=== PATIENT | male | born 1965 | race Caucasian/White ===

== ENCOUNTER → 2022-12-31 14:00 | Outpatient (BNVA) | payer MEDICAID, SELFPAY | PROVIDERS: Visit Provider Nurse Practitioner Family | DX: R05.8 Other specified cough (principal) | CPT/HCPCS: 71046 ==

== ENCOUNTER 2024-05-21 12:08 | Emergency (ER) | payer MEDICAID, SELFPAY ==
[2024-05-21 12:20] VITALS: BP 140/95; PULSE 96; RESP 18; TEMP 36.9; O2SAT 95; BMI 39.1
[2024-05-21 13:20] LABS: Basophils # 0.1 10^3/uL (0.0-0.1); Basophils % 0.6 %; Eosinophils # 0.1 10^3/uL (0.0-0.8); Eosinophils % 0.5 %; Hematocrit 51.6 % (37-53); Lymphocytes # 1.4 10^3/uL (0.8-4.8); Lymphocytes % 12.3 %; Mean Corpuscular HGB Conc 34.1 g/dL (30-55); Mean Corpuscular Volume 88.1 fl (82-101); Mean Platelet Volume 11.7 fL (7.4-10.4); Monocytes # 0.6 10^3/uL (0.2-0.9); Monocytes % 5.5 %; Neutrophils # 9.34 10^3/uL (1.8-7.7); Neutrophils % 80.7 %; Nucleated Red Blood Cells % 0 %; Platelet Count 162 10^3/cmm (157-399); Red Blood Count 5.86 10^6/uL (3.85-5.65); Red Cell Distribution Width 13.7 % (12.1-15.1); White Blood Count 11.59 10^3/uL (3.29-11.43)
[2024-05-21 13:36] LABS: Alanine Aminotransferase 32 U/L (0-41); Albumin Level 4.2 g/dL (3.5-5.2); Alkaline Phosphatase 121 U/L (40-130); Aspartate Amino Transferase 34 U/L (0-40); Blood Urea Nitrogen 14 mg/dL (6-20); Calcium 9.9 mg/dL (8.5-10.5); Carbon Dioxide 21 mmol/L (22-29); Chloride 97 mmol/L (98-107); Creatinine Clr Calc Pharmacy 123.9863; Globulin 3.9 g/dL (1.3-4.6); Glucose 169 mg/dL (65-115); Lipase 38 U/L (13-60); Osmolality Calculated 284 mOsm/kg (285-295); Sodium 135 mmol/L (136-145); Total Bilirubin 0.6 mg/dL (0.15-1.2); Total Protein 8.1 g/dL (6.6-8.7)
[2024-05-21 13:37] LABS: Slide Review Slide Review Perform
[2024-05-21 15:15] VITALS: BP 162/95; PULSE 116; O2SAT 95
--- NOTE | 2024-05-21 15:16 | CTR_ITS ---
PROCEDURE INFORMATION: Exam: CT Abdomen And Pelvis With Contrast Exam date and time: 05/21/2024 3:26 PM Age: 58 years old Clinical indication: Abdominal pain; Additional info: Abd pain TECHNIQUE: Imaging protocol: Computed tomography of the abdomen and pelvis with contrast. Radiation optimization: All CT scans at this facility use at least one of these dose optimization techniques: automated exposure control; mA and/or kV adjustment per patient size (includes targeted exams where dose is matched to clinical indication); or iterative reconstruction. Contrast material: OMNI 350; Contrast volume: 100 ml; Contrast route: INTRAVENOUS (IV); COMPARISON: CR XR chest 2V* [id number] 12/31/2022 2:03 PM RADIATION DOSE METRICS: Total DLP (mGy-cm): 1290 FINDINGS: Liver: Normal. No mass. Gallbladder and biliary ducts: Gallbladder is normally distended, there is minimal pericholecystic fluid, with hyperenhancement of its chen there are least 2 large gallstones identified. Pancreas: Normal. No ductal dilation. Spleen: Normal. No splenomegaly. Adrenal glands: Normal. No mass. Kidneys and ureters: Normal. No hydronephrosis. Stomach and bowel: Unremarkable. No obstruction. No mucosal thickening. Appendix: Normal appendix. Intraperitoneal space: Unremarkable. No free air. No significant fluid collection. Vasculature: Unremarkable. No abdominal aortic aneurysm. Lymph nodes: Unremarkable. No enlarged lymph nodes. Urinary bladder: Unremarkable as visualized. Reproductive: Unremarkable as visualized. Bones/joints: Unremarkable. No acute fracture. Soft tissues: Mild bilateral gynecomastia. CT/CT abdomen pelvis w con* [id number] IMPRESSION: 1. Cholelithiasis with mild wall thickening and possible pericholecystic fluid. Further evaluation with right upper quadrant sonogram may be obtained to exclude acute cholecystitis. 2. Mild bilateral gynecomastia
--- NOTE | 2024-05-21 15:17 | ED_ITS ---
HPI - Abdominal Pain 2 General: Chief Complaint: Abdominal Pain Stated Complaint: abd pain, nausea Time Seen by Provider: 05/21/24 14:16 Source: patient Mode of arrival: ambulatory Limitations: no limitations History of Present Illness: 58-year-old male states that over the 2 days has been having diffuse abdominal pain he is also been having vomiting diarrhea states he had 3 episodes of vomiting today states pain is diffuse in nature throbbing rated a 6 out of 10 he denies any fever states he has a history IBS denies any worsening improving factors. Associated Symptoms: Reports diarrhea, nausea and vomiting; Denies chills, dysuria and fever(s) Review of Systems 2 Const: Denies: fever(s), chills, body aches or change in appetite ENMT: Denies: throat pain or dental pain Card: Denies: chest pain Resp: Denies: dyspnea GI: Reports: abdominal pain, nausea, vomiting and diarrhea : Denies: dysuria Musc: Denies: neck pain or back pain Skin/Breast: Denies: rash Neuro: Denies: headache(s) Physical Exam 2 Const: COMMON NORMALS: no acute distress, patient oriented x3 and healthy appearing HENMT: COMMON NORMALS: normocephalic and atraumatic HEAD & SCALP: n ormocephalic and atraumatic Eye: COMMON NORMALS: conjunctivae normal CONJUNCTIVA: Yes conjunctivae normal Neck/C-Spine: COMMON NORMALS: full ROM and supple Chest: COMMONS NORMALS: normal inspection of the chest Resp: COMMON NORMALS: normal respiratory effort, No retractions, No use of accessory muscles and clear to auscultation bilaterally AUSCULTATION: clear to auscultation bilaterally Cardio: COMMON NORMALS: regular rhythm and No murmurs present (Cardio) R ATE: tachycardic RHYTHM: regular rhythm GI: COMMON NORMALS: Normal to inspection, nondistended, normoactive bowel sounds present, Soft to palpation, non-tender and no masses PALPATION: Yes Soft to palpation Extremity: COMMON NORMALS: normal to inspection and full ROM Neuro: COMMON NORMALS: patient oriented x3, moves all extremities and no focal motor deficits Psych: COMMON NORMALS: mental status grossly normal, Normal thought process present and cooperative THOUGHT PROCESS: Normal thought process present Skin: COMMON NORMALS: no rashes or lesions noted and no wounds GENERAL SKIN EXAM: no rashes or lesions noted Course 2 Vital Signs: Vital signs: Vital Signs Temperature 98.4 F 05/21/24 12:20 Pulse Rate 116 H 05/21/24 15:15 Respiratory Rate 18 05/21/24 12:20 Blood Pressure 132/117 05/21/24 16:50 Pulse Oximetry 95 05/21/24 15:15 Oxygen Delivery Me thod Room Air 05/21/24 15:15 MDM - Abdominal Pain Medical Decision Making Patient presents with abdominal pain he does have some gallstones his abdominal exam at discharge benign he has no right upper quadrant tenderness no signs of acute cholecystitis we will start him on pain meds and antibiotics we will get him follow-up with surgery for his gallstones he is return if worsening he understands agrees to plan Medical Records I reviewed the patient's medical records. Lab Data I reviewed the patient's lab results. 05/21/24 12:56 05/21/24 12:56 Labs/Radiology: Radiology Impressions Abdomen/Pelvis CT 05/21/24 15:16 IMPRESSION: 1. Cholelithiasis with mild wall thickening and possible pericholecystic fluid. Further evaluation with right upper quadrant sonogram may be obtained to exclude acute cholecystitis. 2. Mild bilateral gynecomastia Laboratory Results WBC 11.59 10^3/uL (3.29-11.43) H 05/21/24 12:56 RBC 5.86 10^6/uL (3.85-5.65) H 05/21/24 12:56 Hgb 17.60 g/dL (11.27-16.99) H 05/21/24 12:56 Hct 51.6 % (37-53) 05/21/24 12:56 MCV 88.1 fl (82-101) 05/21/24 12:56 MCH 30.0 pg (27-33) 05/21/24 12:56 MCHC 34.1 g/dL (30-55) 05/21/24 12:56 RDW 13.7 % (12.1-15.1) 05/21/24 12:56 Plt Count 162 10^3/cmm (157-399) 05/21/24 12:56 MPV 11.7 fL (7.4-10.4) H 05/21/24 12:56 Neut % (Auto) 80.7 % 05/21/24 12:56 Lymph % (Auto) 12.3 % 05/21/24 12:56 [place] % (Auto) 5.5 % 05/21/24 12:56 Eos % (Auto) 0.5 % 05/21/24 12:56 Baso % (Auto) 0.6 % 05/21/24 12:56 Neut # (Auto) 9.34 10^3/uL (1.8-7.7) H 05/21/24 12:56 Lymph # (Auto) 1.4 10^3/uL (0.8-4.8) 05/21/24 12:56 [place] # (Auto) 0.6 10^3/uL (0.2-0.9) 05/21/24 12:56 Eos # (Auto) 0.1 10^3/uL (0.0-0.8) 05/21/24 12:56 Baso # (Auto) 0.1 10^3/uL (0.0-0.1) 05/21/24 12:56 Nucleated RBC % (auto) 0 % 05/21/24 12:56 Nucleated RBCs # 0.0 /100WBC 05/21/24 12:56 Sodium 135 mmol/L (136-145) L 05/21/24 12:56 Potassium 4.0 mmol/L (3.5-5.1) 05/21/24 12:56 Chloride 97 mmol/L (98-107) L 05/21/24 12:56 Carbon Dioxide 21 mmol/L (22-29) L 05/21/24 12:56 Anion Gap 21.0 (5-19) H 05/21/24 12:56 BUN 14 mg/dL (6-20) 05/21/24 12:56 Creatinine 0.8 mg/dL (0.7-1.2) 05/21/24 12:56 GFR Calculation 100.0 mL/min (90-130) 05/21/24 12:56 Glucose 169 mg/dL (65-115) H 05/21/24 12:56 Calculated Osmolality 284 mOsm/kg (285-295) L 05/21/24 12:56 Calcium 9.9 mg/dL (8.5-10.5) 05/21/24 12:56 Total Bilirubin 0.6 mg/dL (0.15-1.2) 05/21/24 12:56 AST 34 U/L (0-40) 05/21/24 12:56 ALT 32 U/L (0-41) 05/21/24 12:56 Alkaline Phosphatase 121 U/L (40-130) 05/21/24 12:56 Total Protein 8.1 g/dL (6.6-8.7) 05/21/24 12:56 Albumin 4.2 g/dL (3.5-5.2) 05/21/24 12:56 Globulin 3.9 g/dL (1.3-4.6) 05/21/24 12:56 Lipase 38 U/L (13-60) 05/21/24 12:56 All radiology interpretation(s) finalized by discharge Discharge Plan Discharge Patient Disposition: Home Clinical Impression: Abdominal pain, Cholelithiasis Condition: Stable Prescriptions: New hydrocodone-acetaminophen 5-325 mg tablet 1 tab PO Q6H PRN (Reason: pain) Qty: 14 0RF ondansetron 4 mg tablet,disintegrating 4 mg PO Q6H PRN (Reason: nausea and vomiting) Qty: 14 0RF Augmentin 500-125 mg tablet 1 tab PO BID Qty: 14 0RF Discharge Orders: Discharge ED (Routine); Ordered 05/21/24 Ordered By: Karlie Kaiser Referrals: Zoran Naranjo DO [Physician] - 1-3 days Anthony Bernal MD [Primary Care Provider] - Discharge Diet: Advance as tolerated Discharge Activity: Resume usual activity Patient Instructions: Abdominal Pain - Adult, Gallstones (ED), Abdominal Pain (ED) Coding 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
[2024-05-21] MEDS: iohexol 350 mg/mL 500 mL Btl (per mL) IV (15:28)
[2024-05-21] MEDS: diphenhydrAMINE 50 mg/mL SDV 1mL IVP (15:37)
[2024-05-21] MEDS: metoclopramide 5 mg/mL SDV 2 mL 10 MG IVP (15:37)
[2024-05-21] MEDS: sodium chloride 0.9% 1,000 ML 999 ML IV (15:37)
--- NOTE | 2024-05-21 16:14 | USR_ITS ---
PROCEDURE INFORMATION: Exam: US Abdomen, Limited; Right Upper Quadrant Exam date and time: 05/21/2024 4:25 PM Age: 58 years old Clinical indication: Abdominal pain; Additional info: Ruq pain TECHNIQUE: Imaging protocol: Real time ultrasound of the abdomen with image documentation. Limited exam focused on the right upper quadrant. COMPARISON: CT abdomen pelvis w con* [id number] 05/21/2024 3:26 PM FINDINGS: Liver: Diffuse hepatic steatosis. Gallbladder: Mild diffuse apparent bladder wall thickening with pericholecystic fluid (series 1, images 620, 650, 660) with a small tiny pocket of free fluid adjacent to the liver. Cholelithiasis. Biliary ducts: Normal. No stones. No dilation. Pancreas: Visualized pancreas is unremarkable. Right kidney: Right renal cortical thickening. US/US gall bladder [id number] IMPRESSION: 1. Cholelithiasis with mild pericholecystic fluid and borderline wall thickening. 2. Mild diffuse hepatic steatosis.
[2024-05-21 16:50] VITALS: BP 132/117
[2024-05-21 16:59] VITALS: BP 132/117; PULSE 116; RESP 18; TEMP 36.9; O2SAT 95
--- NOTE | 2024-05-22 08:56 | DCPLANNER ---
messaged gen surg for er f/u
== END 2024-05-21 17:00 | disposition home or self-care (01) ==
PROVIDERS: Emergency Provider Emergency Medicine; PCP Family Medicine
DX: K80.20 Calculus of gallbladder without cholecystitis without obstruction (principal)
CPT/HCPCS: 36415; 74177; 76705; 80053; 83690; 85025; 96374; 96375; 99285; J1200; J2765; J7030; Q9967

== ENCOUNTER 2025-04-04 09:59 | Emergency (ER) | payer MEDICAID, SELFPAY ==
[2025-04-04 10:04] VITALS: BP 109/66; PULSE 107; RESP 17; TEMP 36.6; O2SAT 96; BMI 36.0
[2025-04-04 10:08] VITALS: BP 111/87; PULSE 73; RESP 18; O2SAT 96
--- NOTE | 2025-04-04 10:58 | CT_ITS ---
WS: [id number] CT scan of the head, 04/04/2025 Clinical Data: headache Comparison: None. DLP: 1188.[address] scans at [facility] use at least one of these dose optimization techniques: automated exposure control; mA and/or kV adjustment per patient size (includes targeted exams where dose is matched to clinical indication); or iterative reconstruction. Findings: The ventricular system is slightly dilated without shift. The sulci are mildly enlarged. No recent infarct or hemorrhage is seen. There are no abnormal intracerebral masses. The cerebellum and brainstem are not remarkable. Bony windows of the skull and skull base show no fractures or erosions. The mastoid air cells, internal auditory canals, sella turcica, intraorbital contents, and paranasal sinuses are unremarkable. CT/CT head wo con* [id number] Impression: Mild cerebral atrophy.
[2025-04-04 11:08] VITALS: BP 105/63; PULSE 90; RESP 16; O2SAT 93
[2025-04-04 11:13] LABS: Basophils # 0.1 10^3/uL (0.0-0.1); Basophils % 0.9 %; Eosinophils % 0.2 %; Lymphocytes # 3.9 10^3/uL (0.8-4.8); Lymphocytes % 58.9 %; Mean Corpuscular HGB Conc 32.8 g/dL (30-55); Mean Corpuscular Hemoglobin 28.1 pg (27-33); Mean Corpuscular Volume 85.7 fl (82-101); Mean Platelet Volume 11.7 fL (7.4-10.4); Monocytes # 0.6 10^3/uL (0.2-0.9); Monocytes % 9.5 %; Neutrophils # 2.01 10^3/uL (1.8-7.7); Neutrophils % 30.2 %; Nucleated Red Blood Cells % 0 %; Platelet Count 213 10^3/cmm (157-399); Red Blood Count 5.02 10^6/uL (3.85-5.65); Red Cell Distribution Width 15.4 % (12.1-15.1); White Blood Count 6.64 10^3/uL (3.29-11.43)
[2025-04-04 11:30] VITALS: BP 114/65; PULSE 90; RESP 16; O2SAT 91
[2025-04-04 11:39] LABS: Slide Review Slide Review Perform
[2025-04-04 12:18] LABS: Alanine Aminotransferase 24 U/L (0-41); Albumin Level 3.2 g/dL (3.5-5.2); Alkaline Phosphatase 127 U/L (40-130); Anion Gap 14.5 (5-19); Aspartate Amino Transferase 37 U/L (0-40); Blood Urea Nitrogen 7 mg/dL (6-20); Calcium 9.1 mg/dL (8.5-10.5); Carbon Dioxide 30 mmol/L (22-29); Chloride 94 mmol/L (98-107); Creatinine Clr Calc Pharmacy 134.0358; Globulin 3.8 g/dL (1.3-4.6); Glomerular Filtration Rate 116.2 mL/min (90-130); Glucose 238 mg/dL (65-115); Osmolality Calculated 288 mOsm/kg (285-295); Sodium 136 mmol/L (136-145); Total Bilirubin 0.6 mg/dL (0.15-1.2)
[2025-04-04 12:19] LABS: Potassium 2.5 mmol/L (3.5-5.1)
[2025-04-04 12:30] VITALS: BP 129/71; PULSE 86; RESP 17; O2SAT 91
--- NOTE | 2025-04-04 12:44 | W.ED.HA ---
HPI - Headache General: Chief Complaint: Headache Stated Complaint: off balance, headache, falls Time Seen by Provider: 04/04/25 10:48 History of Present Illness: This patient is a 59-year-old white male who presents to the emergency department complaining of a headache as well as some balance issues. States he has been having headache in the right temporal area that radiates to the occipital area. These headaches have been going on for about 1 week now. He has a history of falling but he says he has been falling more frequently recently. He states he feels like his right foot is not working right. States he has had an unsteady gait for about 2 years but is just getting worse. He does have a history of neuropathy, congestive heart failure, type 2 diabetes and irritable bowel syndrome. Related Data Home Medications ?Medication ?Instructions ?Recorded ?Confirmed amitriptyline 25 mg tablet 25 mg PO DAILY 07/24/24 07/26/24 atorvastatin 20 mg tablet 20 mg PO DAILY 07/24/24 07/26/24 dapagliflozin propanediol 10 mg 10 mg PO DAILY 07/24/24 07/26/24 tablet (Farxiga) furosemide 40 mg tablet (Lasix) 40 mg PO DAILY 07/24/24 07/26/24 gabapentin 400 mg capsule 400 mg PO TID 07/24/24 07/26/24 losartan 25 mg tablet 25 mg PO DAILY 07/24/24 07/26/24 metoprolol tartrate 50 mg tablet 50 mg PO DAILY 07/24/24 07/26/24 (Lopressor) spironolactone 25 mg tablet 25 mg PO DAILY 07/24/24 07/26/24 Previous Rx's ?Medication ?Instructions ?Recorded ondansetron 4 mg disintegrating 4 mg PO Q6H PRN nausea and 05/21/24 tablet vomiting #14 tabs potassium chloride 20 mEq 20 meq PO TID #21 tabs 04/04/25 tablet,extended release(part/cryst) Allergies Allergy/AdvReac Type Severity Reaction Status Date / Time No Known Allergies Allergy Verified 07/26/24 13:32 Review of Systems General: Reports: 10 or more systems reviewed and unremarkable except in HPI and below Neuro: Reports: headache(s) and difficulty walking PFSH ED PFSH: Family History Mother Aortic aneurysm Father Pancreatic cancer Social History Smoking and tobacco/nicotine status: current every day tobacco/nicotine user Alcohol intake: current Alcohol intake frequency: holidays/special occasions only Physical Exam Const: COMMON NORMALS: no acute distress, patient oriented x3 and no limitations GENERAL APPEARANCE: cooperative and comfortable HENMT: COMMON NORMALS: normocephalic, atraumatic, Normal nasal mucous membranes and turbinates present, moist oral mucous membranes and oropharynx normal HEAD & SCALP: normal to inspection, normocephalic and atraumatic FACE & SINUS: normal facial exam NOSE: Normal nasal mucous membranes and turbinates present Eye: COMMON NORMALS: Equal, round and reactive pupils present, EOMs intact bilaterally and conjunctivae normal GENERAL EYE: appearance normal, both eyes and all related structures CONJUNCTIVA: Yes conjunctivae normal PUPIL: Yes Equal, round and reactive pupils present Neck/C-Spine: COMMON NORMALS: supple and no JVD Chest: COMMONS NORMALS: normal inspection of the chest Resp: COMMON NORMALS: normal respiratory effort and clear to auscultation bilaterally AUSCULTATION: clear to auscultation bilaterally Cardio: COMMON NORMALS: no JVD, regular rate, regular rhythm, No gallops present (Cardio), No murmurs present (Cardio) and No rub (Cardio) RATE: regular rate RHYTHM: regular rhythm GI: COMMON NORMALS: Normal to inspection, nondistended, normoactive bowel sounds present, Soft to palpation and non-tender AUSCULTATION: Yes normoactive bowel sounds PALPATION: Yes Soft to palpation : COMMON NORMALS: Yes no CVA tenderness BLADDER/KIDNEY EXAM: Yes no CVA tenderness Back/Pelvis: COMMON NORMALS: no CVA tenderness and thoracic and lumbar spine normal to inspection Extremity: COMMON NORMALS: normal to inspection Neuro: COMMON NORMALS: patient oriented x3 and CN's II-XII intact bilaterally OTHER: Examining the patient's gait appears he does have some weakness in both lower extremities but he is able to ambulate cautiously. Psych: COMMON NORMALS: mental status grossly normal, Normal thought process present and cooperative THOUGHT PROCESS: Normal thought process present Skin: COMMON NORMALS: no rashes or lesions noted, turgor normal and no jaundice GENERAL SKIN EXAM: no rashes or lesions noted and turgor normal Course Vital Signs: Vital signs: Vital Signs Temperature 97.9 F 04/04/25 10:04 Pulse Rate 86 04/04/25 12:30 Respiratory Rate 17 04/04/25 12:30 Blood Pressure 129/71 04/04/25 12:30 Pulse Oximetry 91 04/04/25 12:30 Oxygen Delivery Me thod Room Air 04/04/25 12:30 MDM - Headache Medical Decision Making Head CT was read by the radiologist as mild cerebral atrophy. CBC was normal. CMP revealed a potassium of 2.5. Blood sugar was 238. Patient does not currently have a headache. I think he needs more of a workup than what I can do in the emergency department. Recommended he follow-up with his primary care provider and either have them refer him to neurology for further workup or possibly order MRI of the brain and spinal cord. In terms of the hypokalemia I did place him on 20 mill equivalents of potassium twice per day for 1 week and recommended he follow-up with his primary care physician for recheck in 1 week for recheck. He was discharged in stable condition. Lab Data 04/04/25 10:46 04/04/25 11:[address] 04/04/25 10:58 Impression: Mild cerebral atrophy. Laboratory Results WBC 6.64 10^3/uL (3.29-11.43) 04/04/25 10:46 RBC 5.02 10^6/uL (3.85-5.65) 04/04/25 10:46 Hgb 14.10 g/dL (11.27-16.99) 04/04/25 10:46 Hct 43.0 % (37-53) 04/04/25 10:46 MCV 85.7 fl (82-101) 04/04/25 10:46 MCH 28.1 pg (27-33) 04/04/25 10:46 MCHC 32.8 g/dL (30-55) 04/04/25 10:46 RDW 15.4 % (12.1-15.1) H 04/04/25 10:46 Plt Count 213 10^3/cmm (157-399) 04/04/25 10:46 MPV 11.7 fL (7.4-10.4) H 04/04/25 10:46 Neut % (Auto) 30.2 % 04/04/25 10:46 Lymph % (Auto) 58.9 % 04/04/25 10:46 [place] % (Auto) 9.5 % 04/04/25 10:46 Eos % (Auto) 0.2 % 04/04/25 10:46 Baso % (Auto) 0.9 % 04/04/25 10:46 Neut # (Auto) 2.01 10^3/uL (1.8-7.7) 04/04/25 10:46 Lymph # (Auto) 3.9 10^3/uL (0.8-4.8) 04/04/25 10:46 [place] # (Auto) 0.6 10^3/uL (0.2-0.9) 04/04/25 10:46 Eos # (Auto) 0.0 10^3/uL (0.0-0.8) 04/04/25 10:46 Baso # (Auto) 0.1 10^3/uL (0.0-0.1) 04/04/25 10:46 Nucleated RBC % (auto) 0 % 04/04/25 10:46 Nucleated RBCs # 0.0 /100WBC 04/04/25 10:46 Sodium 136 mmol/L (136-145) 04/04/25 11:42 Potassium 2.5 mmol/L (3.5-5.1) L* 04/04/25 11:42 Chloride 94 mmol/L (98-107) L 04/04/25 11:42 Carbon Dioxide 30 mmol/L (22-29) H 04/04/25 11:42 Anion Gap 14.5 (5-19) 04/04/25 11:42 BUN 7 mg/dL (6-20) 04/04/25 11:42 Creatinine 0.7 mg/dL (0.7-1.2) 04/04/25 11:42 GFR Calculation 116.2 mL/min (90-130) 04/04/25 11:42 Glucose 238 mg/dL (65-115) H 04/04/25 11:42 Calculated Osmolality 288 mOsm/kg (285-295) 04/04/25 11:42 Calcium 9.1 mg/dL (8.5-10.5) 04/04/25 11:42 Total Bilirubin 0.6 mg/dL (0.15-1.2) 04/04/25 11:42 AST 37 U/L (0-40) 04/04/25 11:42 ALT 24 U/L (0-41) 04/04/25 11:42 Alkaline Phosphatase 127 U/L (40-130) 04/04/25 11:42 Total Protein 7.0 g/dL (6.6-8.7) 04/04/25 11:42 Albumin 3.2 g/dL (3.5-5.2) L 04/04/25 11:42 Globulin 3.8 g/dL (1.3-4.6) 04/04/25 11:42 All radiology interpretation(s) finalized by discharge Discharge Plan Discharge Patient Disposition: Home Clinical Impression: Balance disorder Headache Qualifiers: Headache type: unspecified Headache chronicity pattern: episodic headache Intractability: not intractable Qualified Code(s): R51.9 - Headache, unspecified Condition: Stable Prescriptions: New potassium chloride 20 mEq tablet,ER particles/crystals 20 meq PO TID Qty: 21 0RF No Action gabapentin 400 mg capsule 400 mg PO TID losartan 25 mg tablet 25 mg PO DAILY furosemide [Lasix] 40 mg tablet 40 mg PO DAILY amitriptyline 25 mg tablet 25 mg PO DAILY atorvastatin 20 mg tablet 20 mg PO DAILY spironolactone 25 mg tablet 25 mg PO DAILY metoprolol tartrate [Lopressor] 50 mg tablet 50 mg PO DAILY dapagliflozin propanediol [Farxiga] 10 mg tablet 10 mg PO DAILY ondansetron 4 mg tablet,disintegrating 4 mg PO Q6H PRN (Reason: nausea and vomiting) Qty: 14 0RF Discharge Orders: Discharge ED (Routine); Ordered 04/04/25 Ordered By: Agapito Brooks Referrals: Anthony Bernal MD [Primary Care Provider, Family Practice] Patient Instructions: Hypokalemia, Fall Prevention Activity Restrictions/Additional Instructions: Follow-up with your primary care provider soon as possible for further evaluation. You may need an MRI of your brain and spinal cord and neurology referral. 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
--- NOTE | 2025-04-04 12:44 | PC.NURSE ---
ED PROVIDER AWARE OF POTASSIUM 2.5
[2025-04-04 12:57] VITALS: BP 129/71; PULSE 91; RESP 16; O2SAT 98
--- NOTE | 2025-04-04 14:19 | PC.NURSE ---
Concerns with resulted labs. supply chain director reviewed and call to patient to return. Pt verbalized understanding.
== END 2025-04-04 12:58 | disposition home or self-care (01) ==
PROVIDERS: Emergency Provider Emergency Medicine; PCP Family Medicine
DX: R26.89 Other abnormalities of gait and mobility (principal); Z72.0 Tobacco use; R51.9 Headache, unspecified
CPT/HCPCS: 36415; 70450; 80053; 85025; 99284

== ENCOUNTER 2025-04-04 15:16 | Observation (INO) | payer MEDICAID, SELFPAY ==
[2025-04-04] VITALS (25 sets, daily range): BP systolic 112–153; BP diastolic 61–113; PULSE 65–105; RESP 16–27; TEMP 36.8; O2SAT 91–96; BMI 36.0
--- NOTE | 2025-04-04 15:20 | ECG_ITS ---
[employer] Test Date: 2025-04-04 Pat Name: [facility] [place] Department: Room: ED Gender: Male Recruiting Manager: : [id number] Requested By: Agapito Brooks Order Number: [id number] Darren MD: TONI MICHAELS Measurements Intervals [place] Rate: 100 P: 111 [place]: 198 QRS: -50 QRSD: 150 T: 0 QT: 395 QTc: 510 Interpretive Statements SINUS TACHYCARDIA LEFT AXIS DEVIATION [QRS AXIS < -30] LEFT BUNDLE BRANCH BLOCK [120+ ms QRS DURATION, 80+ ms Q/S IN V1/V2, 85+ ms R IN I/aVL/V5/V6] No previous ECG available for comparison Electronically Signed On 04-10-2025 22:58:19 CDT by TONI MICHAELS [id number]
[2025-04-04 16:32] LABS: Magnesium 1.8 mg/dL (1.7-2.3)
[2025-04-04] MEDS: potassium chloride oral liq 20 mEq/15 mL UDC 40 MEQ PO (16:51)
--- NOTE | 2025-04-04 17:30 | W.ED.RECABL ---
HPI - Recheck/Abnormal Lab/Rx General: Chief Complaint: Recheck/Abnormal Lab/Rx Stated Complaint: k+ 2.5 Time Seen by Provider: 04/04/25 15:23 History of Present Illness: This patient is a 59-year-old white male who I saw earlier today. Evidently he was called back to the emergency department due to the hypokalemia. Related Data Home Medications ?Medication ?Instructions ?Recorded ?Confirmed amitriptyline 25 mg tablet 25 mg PO BEDTIME PRN Sleep 07/24/24 04/04/25 atorvastatin 20 mg tablet 20 mg PO QAM 07/24/24 04/04/25 dapagliflozin propanediol 10 mg 10 mg PO QAM 07/24/24 04/04/25 tablet (Farxiga) furosemide 40 mg tablet (Lasix) 40 mg PO DAILY PRN Edema 07/24/24 04/04/25 losartan 25 mg tablet 25 mg PO DAILY 07/24/24 04/04/25 spironolactone 25 mg tablet 25 mg PO DAILY 07/24/24 04/04/25 citalopram 10 mg tablet (Celexa) 10 mg PO DAILY 04/04/25 04/04/25 dulaglutide 0.75 mg/0.5 mL 0.75 mg SUBCUT Q7D 04/04/25 04/04/25 subcutaneous pen injector (Trulicity) dulaglutide 1.5 mg/0.5 mL 1.5 mg SUBCUT Q7D 04/04/25 04/04/25 subcutaneous pen injector (Trulicity) gabapentin 600 mg tablet 600 mg PO TID 04/04/25 04/04/25 metoprolol tartrate 25 mg tablet 25 mg PO BID 04/04/25 04/04/25 prazosin 1 mg capsule 1 mg PO QPM PRN nightmares 04/04/25 04/04/25 terbinafine HCl 250 mg tablet 250 mg PO DAILY 04/04/25 04/04/25 Previous Rx's ?Medication ?Instructions ?Recorded ondansetron 4 mg disintegrating 4 mg PO Q6H PRN nausea and 05/21/24 tablet vomiting #14 tabs potassium chloride 20 mEq 20 meq PO TID #21 tabs 04/04/25 tablet,extended release(part/cryst) Allergies Allergy/AdvReac Type Severity Reaction Status Date / Time No Known Allergies Allergy Verified 07/26/24 13:32 Review of Systems General: Reports: 10 or more systems reviewed and unremarkable except in HPI and below PFSH ED PFSH: Family History Mother Aortic aneurysm Father Pancreatic cancer Social History Smoking and tobacco/nicotine status: current every day tobacco/nicotine user Alcohol intake: current Alcohol intake frequency: holidays/special occasions only Physical Exam Const: COMMON NORMALS: no acute distress, patient oriented x3 (Balance issues) and no limitations GENERAL APPEARANCE: cooperative and comfortable HENMT: COMMON NORMALS: normocephalic, atraumatic, Normal nasal mucous membranes and turbinates present, moist oral mucous membranes and oropharynx normal HEAD & SCALP: normal to inspection, normocephalic and atraumatic FACE & SINUS: normal facial exam NOSE: Normal nasal mucous membranes and turbinates present Eye: COMMON NORMALS: Equal, round and reactive pupils present, EOMs intact bilaterally and conjunctivae normal GENERAL EYE: appearance normal, both eyes and all related structures CONJUNCTIVA: Yes conjunctivae normal PUPIL: Yes Equal, round and reactive pupils present Neck/C-Spine: COMMON NORMALS: supple and no JVD Chest: COMMONS NORMALS: normal inspection of the chest Resp: COMMON NORMALS: normal respiratory effort and clear to auscultation bilaterally AUSCULTATION: clear to auscultation bilaterally Cardio: COMMON NORMALS: no JVD, regular rate, regular rhythm, No gallops present (Cardio), No murmurs present (Cardio) and No rub (Cardio) RATE: regular rate RHYTHM: regular rhythm GI: COMMON NORMALS: Normal to inspection, nondistended, normoactive bowel sounds present, Soft to palpation and non-tender AUSCULTATION: Yes normoactive bowel sounds PALPATION: Yes Soft to palpation : COMMON NORMALS: Yes no CVA tenderness BLADDER/KIDNEY EXAM: Yes no CVA tenderness Back/Pelvis: COMMON NORMALS: no CVA tenderness and thoracic and lumbar spine normal to inspection Extremity: COMMON NORMALS: normal to inspection Neuro: COMMON NORMALS: patient oriented x3 (Balance issues) and CN's II-XII intact bilaterally Psych: COMMON NORMALS: mental status grossly normal, Normal thought process present and cooperative THOUGHT PROCESS: Normal thought process present Skin: COMMON NORMALS: no rashes or lesions noted, turgor normal and no jaundice GENERAL SKIN EXAM: no rashes or lesions noted and turgor normal Course Vital Signs: Vital signs: Vital Signs Temperature 98.3 F 04/04/25 15:17 Pulse Rate 83 04/04/25 17:15 Respiratory Rate 21 H 04/04/25 17:15 Blood Pressure 153/88 04/04/25 17:15 Pulse Oximetry 95 04/04/25 17:15 Oxygen Delivery Me thod Room Air 04/04/25 16:45 MDM - Recheck/Abnormal Lab/Rx Medical Decision Making EKG revealed left bundle branch block. I do not have an old EKG. Magnesium level was 1.8 within normal range. Patient was given 40 mill equivalents of liquid potassium in the emergency department. I discussed the case with Dr. Martinez who agreed with my earlier plan of treating this at home but since the patient has returned we will go ahead and admit him for observation and replace potassium in the hospital. Patient is agreeable to staying overnight. He will be transferred to the floor soon as the bed is available. He is stable. 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
--- NOTE | 2025-04-04 17:50 | PC.NURSE ---
pt ambulated to restroom moderate assist. unsteady gait
--- NOTE | 2025-04-04 18:42 | PM.HP ---
Providers/Chief Complaint Admitting Physician: Emelia Martinez MD Primary Care Provider: Anthony Bernal MD Chief Complaint: k+ 2.5 History of Present Illness [place] is a 59 year old male with past medical history of diabetes mellitus, peripheral neuropathy related to diabetes who presented to the emergency room with generalized weakness. He stated that he has had a headache recently in the bitemporal area which is new for him. There were no visual disturbances. No fever. Patient stated that his right foot seem to have gotten weaker over the past 2 weeks and appeared to be dragging along compared to the left side. He was found to have hypokalemia with potassium down to 2.5. CT of his head showed mild cerebral atrophy but without any signs of stroke. Patient was initially discharged from the emergency room after evaluation with oral potassium supplementation and recommended PCP follow-up. However it appears he was called back to the emergency room later on. He denies any new complaints over and above the headache and the right foot weakness. Review of Systems General: Reports: 10 or more systems reviewed and unremarkable except in HPI and below Const: Denies: fever(s), chills or body aches Eyes: Denies: change in vision, blurry vision or photophobia ENMT: Reports: hoarseness; Denies: throat pain, enlarged tonsils, odynophagia or nasal congestion Card: Denies: chest pain, palpitations, irregular heart rhythm, edema, swelling of feet/ankles, lightheadedness, pre-syncope, dyspnea on exertion or orthopnea Resp: Denies: dyspnea, productive cough, non-productive cough, wheezing, stridor, pain on inspiration, change in phlegm color, hemoptysis or chest congestion GI: Denies: abdominal pain, nausea, vomiting, hematemesis, coffee ground emesis, dysphagia, heartburn, diarrhea, constipation, GI cramping, change in stool character, hematochezia or melena : Denies: flank pain, dysuria, urinary frequency, urinary urgency, urinary hesitancy or hematuria Musc: Denies: neck pain, back pain, extremity pain, joint swelling, joint warmth or deformity Neuro: Denies: headache(s), numbness in extremities, weakness in extremities, sensory changes, difficulty walking, frequent falls, dizziness, vertigo, behavioral changes, Slurred speech present or seizure-like activity Psych: Denies: anxiety, depression, suicidal ideation or homicidal ideation Endo: Denies: polyuria, polydipsia, tired all the time, cold intolerance or hot flashes Frank/Lymph: Denies: easy bruising or easy bleeding Medications/Allergies Home Medications ?Medication ?Instructions ?Recorded ?Confirmed ?Last Taken ?Type ondansetron 4 mg disintegrating 4 mg PO Q6H PRN nausea and 05/21/24 04/04/25 Unknown Rx tablet vomiting #14 tabs amitriptyline 25 mg tablet 25 mg PO BEDTIME PRN Sleep 07/24/24 04/04/25 04/03/25 History atorvastatin 20 mg tablet 20 mg PO QAM 07/24/24 04/04/25 04/03/25 History dapagliflozin propanediol 10 mg 10 mg PO QAM 07/24/24 04/04/25 04/03/25 History tablet (Farxiga) furosemide 40 mg tablet (Lasix) 40 mg PO DAILY PRN Edema 07/24/24 04/04/25 07/26/24 History losartan 25 mg tablet 25 mg PO DAILY 07/24/24 04/04/25 04/03/25 History spironolactone 25 mg tablet 25 mg PO DAILY 07/24/24 04/04/25 04/03/25 History citalopram 10 mg tablet (Celexa) 10 mg PO DAILY 04/04/25 04/04/25 04/03/25 History dulaglutide 0.75 mg/0.5 mL 0.75 mg SUBCUT Q7D 04/04/25 04/04/25 04/02/25 History subcutaneous pen injector (Trulicity) dulaglutide 1.5 mg/0.5 mL 1.5 mg SUBCUT Q7D 04/04/25 04/04/25 Unknown History subcutaneous pen injector (Trulicity) gabapentin 600 mg tablet 600 mg PO TID 04/04/25 04/04/25 04/03/25 History metoprolol tartrate 25 mg tablet 25 mg PO BID 04/04/25 04/04/25 04/03/25 History potassium chloride 20 mEq 20 meq PO TID #21 tabs 04/04/25 04/04/25 Unknown Rx tablet,extended release(part/cryst) prazosin 1 mg capsule 1 mg PO QPM PRN nightmares 04/04/25 04/04/25 Unknown History terbinafine HCl 250 mg tablet 250 mg PO DAILY 04/04/25 04/04/25 Unknown History Allergies Allergy/AdvReac Type Severity Reaction Status Date / Time No Known Allergies Allergy Verified 07/26/24 13:32 PFSH Acute PFSH: Family History Mother Aortic aneurysm Father Pancreatic cancer Social History Smoking and tobacco/nicotine status: current every day tobacco/nicotine user Alcohol intake: current Alcohol intake frequency: holidays/special occasions only Vitals/I&O/Wt Last Vital Signs Temp 98.3 F 04/04/25 15:17 Pulse 102 H 04/04/25 18:35 Resp 21 H 04/04/25 18:35 BP 131/113 04/04/25 18:35 Pulse Ox 93 04/04/25 18:35 O2 Del Method Room Air 04/04/25 16:45 04/04/25 04/04/25 04/04/25 06:59 14:59 22:59 Intake Total 0 / 0 Balance 0 / 0 Weight last 48 hrs Weight 104.326 kg Physical Exam Narrative: General: No acute distress, AO x3 HEENT: PERRLA, pupils bilaterally equal and reactive, pallors not present Chest: Normal vesicular breath sounds, no added sounds, equal good air entry bilaterally CVS: S1-S2 regular, no murmurs, no tachycardia, no gallops, no rubs Abdomen: Soft, nontender, no organomegaly, bowel sounds present Neuro: No focal deficits, no facial deformity, AO x3, power 5/5 in all limbs Data 04/05/25 03:07 04/05/25 11:01 A&P Assessment and plan (1) Hypokalemia: (2) Headache: Plan 59-year-old male presenting to the emergency room today with chief complaints of generalized weakness and a headache. Noted to have hypokalemia with potassium down to 2.5. Currently receiving oral and IV supplementation of potassium. Review of chart shows patient takes Lasix 40 mg p.o. daily but does not have any listed potassium supplementation to go along. This may have been the cause of his low potassium levels. Patient states that he is also on spironolactone and losartan and previously low potassium has never been a problem for him. Describes the headache as being bitemporal. Denies any visual changes. Denies any fever. Less likely to be GCA. Will supplement potassium and recheck levels. If headache resolves with potassium supplementation, no further workup may be needed in this regard. He is complaining of right foot weakness compared to the left side. Patient to plantarflex, right side is slightly weaker than the left. Suspect this to be related to peripheral neuropathy. No weakness was found at the hip or knee level. May need EMG or NCV studies as outpatient. Will obtain PT OT assessment given that patient reports recurrent falls. DVT prophylaxis low risk Full code PDMP PDMP Reviewed: Not Reviewed Attestations Medical Necessity Statement*: Less than 2 midnight stay is anticipated Coding Level of Care Code Acute Code for Chg Fwd Diagnoses Hypokalemia E87.6 Headache R51.9 Headache chronicity pattern: episodic headache Headache type: unspecified Intractability: not intractable
[2025-04-04 19:19] LABS: Alanine Aminotransferase 25 U/L (0-41); Albumin Level 3.4 g/dL (3.5-5.2); Alkaline Phosphatase 130 U/L (40-130); Anion Gap 16.6 (5-19); Aspartate Amino Transferase 39 U/L (0-40); Blood Urea Nitrogen 7 mg/dL (6-20); Calcium 9.1 mg/dL (8.5-10.5); Carbon Dioxide 29 mmol/L (22-29); Chloride 94 mmol/L (98-107); Creatine Phosphokinase 58 U/L (39-308); Creatinine Clr Calc Pharmacy 156.3751; Glomerular Filtration Rate 138.9 mL/min (90-130); Glucose 182 mg/dL (65-115); Osmolality Calculated 287 mOsm/kg (285-295); Sodium 137 mmol/L (136-145); Total Bilirubin 0.7 mg/dL (0.15-1.2); Total Protein 7.4 g/dL (6.6-8.7)
[2025-04-04 19:29] LABS: Potassium 2.6 mmol/L (3.5-5.1)
[2025-04-04 20:04] LABS: Thyroid Stimulating Hormone 1.89 uIU/mL (0.27-4.20)
[2025-04-04] MEDS: metoprolol tartrate 25 mg Tablet PO (20:17)
[2025-04-04] MEDS: amitriptyline 25 mg Tablet PO (20:17)
[2025-04-04] MEDS: gabapentin 300 mg Capsule 600 MG PO (20:17)
[2025-04-04] MEDS: lidocaine 1% 5 ML in potassium chloride premix 100 ML 26.25 ML IV (20:20)
[2025-04-05] VITALS (12 sets, daily range): BP systolic 122–150; BP diastolic 68–88; PULSE 79–85; RESP 16–18; O2SAT 90–95
--- NOTE | 2025-04-05 01:34 | PC.NURSE ---
report given to mango paez.
[2025-04-05 03:12] LABS: Basophils % 0.6 %; Eosinophils % 0.2 %; Hematocrit 40.7 % (37-53); Lymphocytes # 3.2 10^3/uL (0.8-4.8); Lymphocytes % 64.1 %; Mean Corpuscular HGB Conc 32.7 g/dL (30-55); Mean Corpuscular Hemoglobin 28.1 pg (27-33); Mean Platelet Volume 10.6 fL (7.4-10.4); Monocytes # 0.6 10^3/uL (0.2-0.9); Monocytes % 11.8 %; Neutrophils # 1.16 10^3/uL (1.8-7.7); Neutrophils % 23.1 %; Nucleated Red Blood Cells % 0 %; Platelet Count 195 10^3/cmm (157-399); Red Blood Count 4.73 10^6/uL (3.85-5.65); White Blood Count 5.02 10^3/uL (3.29-11.43)
[2025-04-05 03:33] LABS: Alanine Aminotransferase 22 U/L (0-41); Albumin Level 3.1 g/dL (3.5-5.2); Alkaline Phosphatase 121 U/L (40-130); Anion Gap 12.7 (5-19); Aspartate Amino Transferase 33 U/L (0-40); Blood Urea Nitrogen 7 mg/dL (6-20); Calcium 9.1 mg/dL (8.5-10.5); Carbon Dioxide 32 mmol/L (22-29); Chloride 98 mmol/L (98-107); Creatinine Clr Calc Pharmacy 159.0595; Globulin 3.7 g/dL (1.3-4.6); Glomerular Filtration Rate 138.9 mL/min (90-130); Glucose 211 mg/dL (65-115); Osmolality Calculated 294 mOsm/kg (285-295); Sodium 140 mmol/L (136-145); Total Bilirubin 0.6 mg/dL (0.15-1.2); Total Protein 6.8 g/dL (6.6-8.7)
[2025-04-05 03:37] LABS: Potassium 2.7 mmol/L (3.5-5.1)
[2025-04-05 03:53] LABS: Slide Review Slide Review Perform
[2025-04-05 04:24] LABS: Phosphorus 3.9 mg/dL (2.5-4.5)
[2025-04-05] MEDS: potassium chloride ER 20 mEq Tablet 40 MEQ PO ×3 (04:32→12:42)
[2025-04-05] MEDS: magnesium sulfate premix 2 GM/50 ML PIGGYBACK IV (04:33)
[2025-04-05] MEDS: atorvastatin 40 mg Tablet 20 MG PO (05:15)
--- NOTE | 2025-04-05 07:07 | PC.NURSE ---
THIS NURSE ASSUMED CARE @ [id number].
--- NOTE | 2025-04-05 08:18 | ECG_ITS ---
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: : [id number] Requested By: Emelia Martinez Order Number: [id number] Reading MD: TONI MICHAELS Measurements Intervals [place] Rate: 84 P: 38 FL: 194 QRS: -50 QRSD: 153 T: -25 QT: 416 QTc: 494 Interpretive Statements SINUS RHYTHM LEFT AXIS DEVIATION [QRS AXIS < -30] LEFT BUNDLE BRANCH BLOCK [120+ ms QRS DURATION, 80+ ms Q/S IN V1/V2, 85+ ms R IN I/aVL/V5/V6] Compared to ECG 04/04/2025 15:20:56 Sinus tachycardia no longer present Electronically Signed On 04-10-2025 22:58:51 CDT by TONI MICHAELS [email or web address] [id number]
[2025-04-05] MEDS: gabapentin 300 mg Capsule 600 MG PO (08:29)
[2025-04-05] MEDS: metoprolol tartrate 25 mg Tablet PO (08:30)
[2025-04-05] MEDS: pantoprazole DR 40 mg Tablet PO (08:30)
[2025-04-05] MEDS: losartan 50 mg Tablet 25 MG PO (08:31)
[2025-04-05] MEDS: citalopram 20 mg Tablet 10 MG PO (08:31)
[2025-04-05] MEDS: spironolactone 25 mg Tablet PO (08:31)
[2025-04-05 11:30] LABS: Potassium 3.3 mmol/L (3.5-5.1)
--- NOTE | 2025-04-05 14:33 | PC.NURSE ---
Upon review for d/c, there was a referral placed for Neurology, however after discussion with Dr. Romo, patient's neuropathy is either secondary to Hypokalemia or his DM 2. He and I decided that patient could follow up with his PCP, Dr. Bernal, and he can determine if patient requires further referrals. Appointment scheduled for Dr. Bernal and I informed his clinic that patient would require Potassium level drawn next week.
--- NOTE | 2025-04-05 14:45 | PC.NURSE ---
D/c information provided by Pranay Dwyer RN. Transportation arranged with [employer] and approval provided to their office for hospital to be billed for the ride. Patient d/c'd and stated he would prefer to wait out front for the [employer] ride. Patient exited the ED ambulating independently.
--- NOTE | 2025-04-05 15:04 | PC.OT ---
OT radhaal attempted with pt declining services. Will try again at a later time.
--- NOTE | 2025-04-05 17:31 | P.DS_ITS ---
Discharge Providers Date of Admission: 04/04/25 19:21 Date of Discharge: April 05, 2025 Attending Provider at Admission: Emelia Martinez MD Attending Provider at Discharge: Emelia Martinez MD Primary Care Provider: Anthony Bernal MD Diagnoses at Discharge Discharge Diagnosis (1) Hypokalemia: Status: Acute (2) Headache: Status: Acute Qualifiers: Headache chronicity pattern: episodic headache Headache type: unspec ified Intractability: not intractable Qualified Code(s): R51.9 - Headache, unspecified Reason for Visit Reason for Visit: k+ 2.5 Hospital Course Hospital Course [place] is a 59 year old male with past medical history of diabetes mellitus, peripheral neuropathy related to diabetes who presented to the emergency room with generalized weakness. He stated that he has had a headache recently in the bitemporal area which is new for him. There were no visual disturbances. No fever. Patient stated that his right foot seemed to have gotten weaker over the past 2 weeks and appeared to be dragging along compared to the left side. He was found to have hypokalemia with potassium down to 2.5. CT of his head showed mild cerebral atrophy but without any signs of stroke. Potassium levels were repleted with IV and oral supplementation. This afternoon potassium level is at 3.3. PT evaluation is completed. Though he had no obvious foot drop during assessment, plantarflexion did reveal some mild weaknes s, on the right side compared to the left. He would likely benefit from outpatient therapy. There was noted to be impaired proprioception to the right ankle to large motions. Walker was recommended for safety and this is being arranged. Additionally referral has been provided to neurology to assess for EMG versus NCV studies for further assessment. Patient's headache is resolved today. Physical Exam Narrative: General: No acute distress, AO x3 HEENT: PERRLA, pupils bilaterally equal and reactive, pallors not present Chest: Normal vesicular breath sounds, no added sounds, equal good air entry bilaterally CVS: S1-S2 regular, no murmurs, no tachycardia, no gallops, no rubs Abdomen: Soft, nontender, no organomegaly, bowel sounds present Neuro: No focal deficits, no facial deformity, AO x3, power 5/5 in all limbs Discharge Data Studies Completed and Pending Laboratory Results WBC 5.02 10^3/uL (3.29-11.43) 05/30/25 03:07 RBC 4.73 10^6/uL (3.85-5.65) 04/05/25 03:07 Hgb 13.30 g/dL (11.27-16.99) 04/05/25 03:07 Hct 40.7 % (37-53) 04/05/25 03:07 MCV 86.0 fl (82-101) 04/05/25 03:07 MCH 28.1 pg (27-33) 04/05/25 03:07 MCHC 32.7 g/dL (30-55) 04/05/25 03:07 RDW 15.0 % (12.1-15.1) 04/05/25 03:07 Plt Count 195 10^3/cmm (157-399) 04/05/25 03:07 MPV 10.6 fL (7.4-10.4) H 04/05/25 03:07 Neut % (Auto) 23.1 % 04/05/25 03:07 Lymph % (Auto) 64.1 % 04/05/25 03:07 Lares % (Auto) 11.8 % 04/05/25 03:07 Eos % (Auto) 0.2 % 04/05/25 03:07 Baso % (Auto) 0.6 % 04/05/25 03:07 Neut # (Auto) 1.16 10^3/uL (1.8-7.7) L 04/05/25 03:07 Lymph # (Auto) 3.2 10^3/uL (0.8-4.8) 04/05/25 03:07 Lares # (Auto) 0.6 10^3/uL (0.2-0.9) 04/05/25 03:07 Eos # (Auto) 0.0 10^3/uL (0.0-0.8) 04/05/25 03:07 Baso # (Auto) 0.0 10^3/uL (0.0-0.1) 04/05/25 03:07 Nucleated RBC % (auto) 0 % 04/05/25 03:07 Nucleated RBCs # 0.0 /100WBC 04/05/25 03:07 Sodium 140 mmol/L (136-145) 04/05/25 03:07 Potassium 3.3 mmol/L (3.5-5.1) L 04/05/25 11:01 Chloride 98 mmol/L (98-107) 04/05/25 03:07 Carbon Dioxide 32 mmol/L (22-29) H 04/05/25 03:07 Anion Gap 12.7 (5-19) 04/05/25 03:07 BUN 7 mg/dL (6-20) 04/05/25 03:07 Creatinine 0.6 mg/dL (0.7-1.2) L 04/05/25 03:07 GFR Calculation 138.9 mL/min (90-130) H 04/05/25 03:07 Glucose 211 mg/dL (65-115) H 04/05/25 03:07 Calculated Osmolality 294 mOsm/kg (285-295) 04/05/25 03:07 Calcium 9.1 mg/dL (8.5-10.5) 04/05/25 03:07 Phosphorus 3.9 mg/dL (2.5-4.5) 04/05/25 03:07 Magnesium 1.8 mg/dL (1.7-2.3) 04/04/25 15:20 Total Bilirubin 0.6 mg/dL (0.15-1.2) 04/05/25 03:07 AST 33 U/L (0-40) 04/05/25 03:07 ALT 22 U/L (0-41) 04/05/25 03:07 Alkaline Phosphatase 121 U/L (40-130) 04/05/25 03:07 Creatine Kinase 58 U/L (39-308) 04/04/25 18:56 Total Protein 6.8 g/dL (6.6-8.7) 04/05/25 03:07 Albumin 3.1 g/dL (3.5-5.2) L 04/05/25 03:07 Globulin 3.7 g/dL (1.3-4.6) 04/05/25 03:07 TSH 1.89 uIU/mL (0.27-4.20) 04/04/25 18:56 Vitals Last Vital Signs Temp 98.3 F 04/04/25 15:17 Pulse 84 04/05/25 14:59 Resp 16 04/05/25 12:36 BP 124/68 04/05/25 14:59 Pulse Ox 92 04/05/25 14:59 O2 Del Method Nasal Cannula 04/05/25 12:36 O2 Flow Rate 1 04/05/25 12:36 Discharge Plan Discharge Patient Disposition: Home Condition: Stable Prescriptions: Continued losartan 25 mg tablet 25 mg PO DAILY furosemide [Lasix] 40 mg tablet 40 mg PO DAILY PRN (Reason: Edema) amitriptyline 25 mg tablet 25 mg PO BEDTIME PRN (Reason: Sleep) atorvastatin 20 mg tablet 20 mg PO QAM spironolactone 25 mg tablet 25 mg PO DAILY dapagliflozin propanediol [Farxiga] 10 mg tablet 10 mg PO QAM ondansetron 4 mg tablet,disintegrating 4 mg PO Q6H PRN (Reason: nausea and vomiting) Qty: 14 0RF gabapentin 600 mg tablet 600 mg PO TID citalopram [Celexa] 10 mg tablet 10 mg PO DAILY prazosin 1 mg capsule 1 mg PO QPM PRN (Reason: nightmares) terbinafine HCl 250 mg tablet 250 mg PO DAILY metoprolol tartrate 25 mg tablet 25 mg PO BID Trulicity 0.75 mg/0.5 mL pen injector 0.75 mg SUBCUT Q7D Trulicity 1.5 mg/0.5 mL pen injector 1.5 mg SUBCUT Q7D potassium chloride 20 mEq tablet,ER particles/crystals 20 meq PO TID Qty: 21 0RF Discharge Orders: Discharge Order (Routine); Ordered 04/05/25 Ordered By: Emelia Martinez Other Ambulatory Orders: DME: Walker (Order) Location: None Selected Ordered By: Emelia Martinez Referrals: Physical Therapy - [facility] [Provider Group] - 1 week Referral Note: [facility] for [facility]. They will be calling you in the next few days to schedule an intake appointment. Anthony Bernal MD [Primary Care Provider, Family Practice] - 04/10/25 10:30 am Referral Note: hospital discharge follow up, needs repeat potassium check early next week Discharge Diet: Usual diet Discharge Activity: Resume usual activity Patient Instructions: Type 2 Diabetes, Hypokalemia, Opioid Safety Discharge Attestations Time Spent in Discharge Care*: greater than 30 min Quality Metrics Clinical Quality Measures [ No reported AMI, CVA or VTE this stay] Coding Level of Care Code Acute Code for Chg Fwd Diagnoses Hypokalemia E87.6 Headache R51.9 Headache chronicity pattern: episodic headache Headache type: unspecified Intractability: not intractable
== END 2025-04-05 14:45 | disposition home or self-care (01) ==
LOC: ER 17:58 → ER IP 21:43
PROVIDERS: Internal Medicine; Admitting Provider Student in an Organized Health Care Education/Training Program; Emergency Provider Emergency Medicine; PCP Family Medicine; Visit Provider Student in an Organized Health Care Education/Training Program
DX: E87.6 Hypokalemia (principal); R51.9 Headache, unspecified; R53.1 Weakness; E11.42 Type 2 diabetes mellitus with diabetic polyneuropathy; F17.200 Nicotine dependence, unspecified, uncomplicated
CPT/HCPCS: 36415; 80053; 82550; 83735; 84100; 84132; 84443; 85025; 93005; 96365; 97116; 97161; 99285; G0378; J3475; J3480; J9999

== ENCOUNTER 2025-09-10 09:22 | Outpatient (CLI) | payer MEDICAID, SELFPAY ==
--- NOTE | 2025-09-10 09:29 | MR_ITS ---
WS: [id number] MRI BRAIN WITH HIGH-RESOLUTION IMAGING THROUGH THE INTERNAL AUDITORY CANALS WITHOUT AND WITH CONTRAST HISTORY: BILATERAL HEARING LOSS, sensorineural LEFT greater than RIGHT. COMPARISON: CT head 04/04/2025 TECHNIQUE: Multiplanar, multisequence imaging is performed through the brain. Additional 3 mm imaging performed in multiple planes through the internal auditory canal. Postcontrast imaging with 20 ml's of MultiHance. No acute intracranial hemorrhage, midline shift, edema or mass effect. 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 There are a few additional areas of cortical hyperintensity involving the cortex of the posterior LEFT frontal and parietal lobes. Normal cerebellum. Very minimal volume loss and atrophy. Ventricles and extra-axial spaces are normal. No inferior displacement of cerebellar tonsils. Clivus and pituitary gland are normal. Internal and external auditory canals: Unremarkable. Cranial nerves VII and VIII complexes: Unremarkable. No enhancement or mass. There is a small vessel closely associated with the RIGHT 7th and 8th cranial nerve complexes. Cerebellopontine angles: Normal. Paranasal sinuses: Mucoperiosteal thickening in the maxillary sinuses. No air- fluid levels. Mastoid air cells: Small RIGHT mastoid air cell effusion. Calvarium and scalp: Normal. Visualized [place] and dural venous sinuses demonstrate no abnormality. MR/MR iac's wo/w con* [id number] IMPRESSION: 1. No acute infarcts or hemorrhage. 2. Mild volume loss and small vessel disease. 3. 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 Additiona l small vessel disease in the posterior LEFT frontal cortex and parietal lobe c ortex. 4. No enhancing masses along the cerebellopontine angles or internal auditory canals. 5. Mild maxillary sinusitis.
[2025-09-10] MEDS: gadobenate dimeglumine 20 mL vial IV (10:14)
== END 2025-09-10 09:23 | disposition home or self-care (01) ==
LOC: RAD 09:23
PROVIDERS: PCP Family Medicine; Visit Provider Nurse Practitioner Family
DX: H90.3 Sensorineural hearing loss, bilateral (principal); R93.0 Abnormal findings on diagnostic imaging of skull and head, not elsewhere classified; J32.0 Chronic maxillary sinusitis; H74.8X1 Other specified disorders of right middle ear and mastoid
CPT/HCPCS: 70553